=== PATIENT | female | born 1975 | race Two or more races ===

== ENCOUNTER 2023-03-05 07:34 | Emergency (ER) | payer OTHER ==
[~2023-03-05] VITALS: Ht 157.5 cm; Wt 52.2 kg
[2023-03-05] MEDS ORDERED: MOUNJARO2.5 MG/0.5 PO (07:50)
== END 2023-03-05 12:54 | disposition home or self-care (01) ==
LOC: ER 07:34
PROVIDERS: General Practice
DX: R10.9 Unspecified abdominal pain (principal); N93.9 Abnormal uterine and vaginal bleeding, unspecified